=== PATIENT | male | born 1985 | race Caucasian/White ===

== ENCOUNTER 2019-05-31 22:48 | Emergency (ER) | payer SELFPAY ==
--- NOTE | 2019-05-31 23:20 | ED ---
Upper Extremity Pain - HPI Summary HPI Summary: 34 yo male presents to [facility] [place] [facility] ED with right shoulder pain. 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 He felt a pop in his right shoulder and had immediate pain - he reflexively moved his arm and felt another pop, like it "went back into place". Since that time has had pain in the shoulder. Came directly to the ED. Has not taken anything OTC for discomfort. Denies numbness, tingling, neck pain , elbow pain, head pain. - History of Current Complaint Chief Complaint: EDSdamionldKalliejoseframon Stated Complaint: RIGHT SHOULDER INJURY PER EMS Time Seen by Provider: 05/31/19 22:56 Hx Obtained From: Patient Severity Initially: Severe Severity Currently: Severe Pain Location: Shoulder - Allergies/Home Medications Allergies/Adverse Reactions: Allergies Allergy/AdvReac Type Severity Reaction Status Date / Time aspirin Allergy Unknown Unknown Verified 05/31/19 23:37 Reaction Details PMH/Surg Hx/FS Hx/Imm Hx Endocrine/Hematology History: Denies: Hx Blood Disorders, Hx Diabetes Cardiovascular History: Denies: Hx Cardiac Arrest Respiratory History: Denies: Hx Asthma Musculoskeletal History: Denies: Hx Gout Neurological History: Denies: Hx CVA, Hx Headaches - Surgical History Surgical History: None - Immunization History Immunizations Up to Date: Yes Infectious Disease History: No Infectious Disease History: Denies: Traveled Outside the [place] in Last 30 Days - Social History Lives: With Family Alcohol Use: Occasionally Substance Use Type: Reports: None Smoking Status (MU): Light Every Day Tobacco Smoker Review of Systems Constitutional: Negative Cardiovascular: Negative Respiratory: Negative Gastrointestinal: Negative Musculoskeletal: Other - Right shoulder pain Skin: Negative Neurological: Negative Psychological: Normal All Other Systems Reviewed And Are Negative: Yes Physical Exam - Summary Physical Exam Summary: GENERAL: NAD. WDWN. No pain distress. SKIN: No rashes, sores, lesions, or open wounds. CHEST: No accessory muscle use. Breathing comfortably and in no distress. CV: Pulses intact radial and ulnar. Cap refill <2seconds MSK: RIGHT SHOULDER: TTP about entire shoulder. Unable/unwilling to move right shoulder due to pain. Passive ROM to 45deg before pain stops him. Operating Room Surgical Technologist strength intact. No edema or obvious bony deformities. Right elbow FROM and NTTP. Clavicle NTTP. NEURO: Alert. Sensations intact C4-T1 b/l. PSYCH: Age appropriate behavior. Triage Information Reviewed: Yes Vital Signs On Initial Exam: Initial Vitals Temp Pulse Resp BP Pulse Ox 97.9 F 97 16 142/97 97 05/31/19 22:51 05/31/19 22:51 05/31/19 22:51 05/31/19 22:51 05/31/19 22:51 Vital Signs Reviewed: Yes Diagnostics - Vital Signs Vital Signs Temp Pulse Resp BP Pulse Ox 05/31/19 22:51 97.9 F 97 16 142/97 97 - Laboratory Lab Statement: Any lab studies that have been ordered have been reviewed, and results considered in the medical decision making process. Course/Dx - Course Course Of Treatment: XR shoulder: reviewed with Dr. Lugo - no acute findings. No dislocation. Pt was given norco in the ED for his discomfort. It is possible he sustained a shoulder dislocation with spontaneous reduction. He is NV intact at this time and shoulder is in the correct position. Placed in a shoulder immobilizer and advised to rest, ice, and f/u with Orthopedics early next week for a recheck. Will rx for a short supply of norco for pain. - Diagnoses Provider Diagnoses: Right shoulder pain Discharge - Sign-Out/Discharge Documenting (check all that apply): Patient Departure Patient Received Moderate/Deep Sedation with Procedure: No - Discharge Plan Condition: Stable Disposition: HOME Prescriptions: HYDROcodone/ACETAMIN 5-325 MG* [Herscher 5-325 TAB*] 1 tab PO Q8H PRN #9 tab MDD 3 PRN Reason: Pain Patient Education Materials: Shoulder Pain (ED) Referrals: No Primary Care Phys,NOPCP [Primary Care Provider] - Forrest Ly MD [Medical Doctor] - As Soon As Possible Additional Instructions: If you develop a fever, shortness of breath, chest pain, new or worsening symptoms - please call your PCP or go to the ED immediately. Your blood pressure was high at todays visit. Please see your primary provider within 4 weeks for recheck and re-evaluation. 1) The X-Ray of your shoulder was normal today. Your shoulder may have dislocated and "popped" back into place. 2) Rest, Ice, and use the sling to reduce pain 3) Take the pain medications as directed for discomfort 4) Please call Orthopedics to schedule an appointment for a recheck in 3-5 days - Billing Disposition and Condition Condition: STABLE Disposition: Home
[2019-05-31] MEDS ORDERED: Morphine 4 MG/ML VIAL (1 ml) 4 MG/ML VIAL IV ONE (23:31)
[2019-06-01] MEDS ORDERED: HYDROcodone/ACETAMIN 5-325 MG* 1 TAB PO ONE
[2019-06-01 00:29] VITALS: BP 142/98
--- NOTE | 2019-06-01 08:41 | PN ---
Progress Note - Progress Note Date of Service: 05/31/19 Note: Pt. seen last night for potential shoulder dislocation that was suspect to reduce spontaneously according to ED provider's note. Final radiology read on shoulder today: IMPRESSION: There is suggestion of posterior dislocation of the humeral head. Findings discussed with REINIER Bui in the ER at 7:50 AM. R1F Attempted to call pt. today at 0840 to discuss concerned with no answer. Message left to return call the ED. Will attempt to call later in the day.
== END 2019-06-01 00:28 | disposition home or self-care (01) ==
LOC: ED 22:48
DX: M25.511 Pain in right shoulder (principal); F17.210 Nicotine dependence, cigarettes, uncomplicated; Z88.8 Allergy status to other drugs, medicaments and biological substances
CPT/HCPCS: 96374; 99282